=== PATIENT | female | born 1965 | race African-American/Black ===

== ENCOUNTER 2020-03-18 12:43 | Emergency (ER) ==
[2020-03-18] MEDS ORDERED: predniSONE 20 MG TAB ONE (13:31)
[2020-03-18] MEDS ORDERED: Ibuprofen 600 MG TAB ONE (13:31)
== END 2020-03-18 13:40 | disposition home or self-care (01) ==
LOC: MADERS 12:43
DX: M54.5 Low back pain (principal); I10 Essential (primary) hypertension; Z79.899 Other long term (current) drug therapy
CPT/HCPCS: 99283; J7512